=== PATIENT | female | born 1990 | race Caucasian/White ===

== ENCOUNTER 2017-01-26 12:12 | Emergency (ER) | payer MEDICAID, OTHER ==
[2017-01-26 12:24] VITALS: RESP 20
--- NOTE | 2017-01-26 13:07 | C.PDOC ---
History Of Present Illness 26 year old female presents to the ED with complaints of palpitations for two days with subjective dyspnea and mild chest pain. Patient denies fever, chills, nausea, vomiting, weakness, or numbness. Time Seen by Provider: 01/26/17 12:56 Chief Complaint (Nursing): Palpitations History Per: Patient History/Exam Limitations: no limitations Onset/Duration Of Symptoms: Days (2 days ) Current Symptoms Are (Timing): Still Present Quality: "Pain" Associated Symptoms: denies: Nausea, Dyspnea, Diaphoresis, Syncope Recent travel outside of the [place]: No Past Medical History Reviewed: Historical Data, Nursing Documentation, Vital Signs Vital Signs: Last Vital Signs Temp 98 F 01/26/17 14:15 Pulse 78 01/26/17 14:15 Resp 20 01/26/17 14:15 BP 114/73 01/26/17 14:15 Pulse Ox 97 01/26/17 14:15 - [facility] Procedures INJECT/INFUSE NEC (02/01/13) Family History: States: Unknown Family Hx - Social History Hx Alcohol Use: No Hx Substance Use: No - Immunization History Hx Tetanus Toxoid Vaccination: No Hx Influenza Vaccination: No Hx Pneumococcal Vaccination: No Review Of Systems Constitutional: Negative for: Fever, Chills Cardiovascular: Positive for: Chest Pain (mild ), Palpitations Respiratory: Positive for: Other (subjective dyspnea ). Negative for: Cough Gastrointestinal: Negative for: Nausea, Vomiting, Abdominal Pain Physical Exam - Physical Exam Appears: Non-toxic, No Acute Distress Skin: Warm, Dry Head: Atraumatic, Normacephalic Eye(s): bilateral: Normal Inspection, PERRL, EOMI Oral Mucosa: Moist Neck: Normal ROM, Supple Chest: Symmetrical, No Deformity, No Tenderness, Other (PERC negative ) Cardiovascular: Rhythm Regular, No Murmur Respiratory: Normal Breath Sounds, No Rales, No Rhonchi, No Wheezing Gastrointestinal/Abdominal: Soft, No Tenderness, No Distention, No Guarding, No Rebound Extremity: Normal ROM, No Tenderness, No Pedal Edema, No Calf Tenderness, Capillary Refill (good capillary refill, less than 2 seconds ), No Deformity, No Swelling Neurological/Psych: Oriented x3, Normal Speech, Normal Cognition, Normal Motor, Normal Sensation ED Course And Treatment - Laboratory Results Result Diagrams: 01/26/17 13:36 01/26/17 13:36 ECG: Interpreted By Me, Viewed By Me ECG Rhythm: Sinus Rhythm Interpretation Of ECG: No ST/T wave changes. Rate From EC O2 Sat by Pulse Oximetry: 98 (room air ) - Radiology CXR: Viewed By Me, Read By Radiologist CXR Interpretation: Yes: No Acute Disease Progress Note: EKG, CXR, UA, UPreg, and blood work were ordered. Medical Decision Making Medical Decision Making: palpiations/cp. r/o pneumonia, metabolic, electrotyle abnormality, anemia- labs imaging peidning perc neg. pt reasseseed speaking full sentencnes, labs cxr neg. ekg wnl. pt asking for dc as she needs to leave immediately. notified of mild luekocytosis. advise outpt fu Disposition - Disposition Referrals: [facility] [facility] [Outside] [facility] [Outside] [facility] [Outside] Moshe Cole MD [Staff Provider] - Disposition: HOME/ ROUTINE Disposition Time: 02:00 Condition: STABLE Additional Instructions: please follow up with your doctor. return to er with worsneing symptoms or concerns. Instructions: Chest Pain (ED), Palpitations (ED), Leukocytosis (ED) Forms: [facility] ([place]ic) - Clinical Impression Clinical Impression: Palpitations, Chest pain - Scribe Statement The provider has reviewed the documentation as recorded by the Scribe Carole Kinney All medical record entries made by the Scribe were at my direction and personally dictated by me. I have reviewed the chart and agree that the record accurately reflects my personal performance of the history, physical exam, medical decision making, and the department course for this patient. I have also personally directed, reviewed, and agree with the discharge instructions and disposition.
[2017-01-26 13:49] LABS: BASO % 0.3 % (0.0-2.0); EOS # 0.1 K/uL (0.0-0.7); EOS % 0.6 % (0.0-4.0); HEMATOCRIT 37.4 % (34.0-47.0); LYMPH # 1.7 K/uL (1.0-4.3); MEAN CELL VOLUME 80.9 fL (81.0-99.0); MEAN CORPUSCULAR HEMOGLOBIN 26.8 pg (27.0-31.0); MEAN CORPUSCULAR HGB CONC 33.1 g/dL (33.0-37.0); MEAN PLATELET VOLUME 10.3 fL (7.2-11.7); MONO # 0.7 K/uL (0.0-0.8); MONO % 5.3 % (0.0-10.0); RED CELL DISTRIBUTION WIDTH 13.7 % (11.5-14.5); WHITE BLOOD COUNT 12.2 K/uL (4.8-10.8)
--- NOTE | 2017-01-26 13:55 | RAD ---
HISTORY: SOB COMPARISON: No prior. TECHNIQUE: Chest PA and lateral FINDINGS: LUNGS: No active pulmonary disease. PLEURA: No significant pleural effusion identified. No pneumothorax apparent. CARDIOVASCULAR: Normal. OSSEOUS STRUCTURES: No significant abnormalities. VISUALIZED UPPER ABDOMEN: Normal. OTHER FINDINGS: None. IMPRESSION: No active disease.
[2017-01-26 13:59] LABS: RBC URINE < 1 /hpf (0-3); URINE BILIRUBIN NEGATIVE (NEGATIVE); URINE BLOOD NEGATIVE (NEGATIVE); URINE COLOR Yellow (YELLOW); URINE GLUCOSE (UA) NORMAL (Normal); URINE KETONE NEGATIVE (NEGATIVE); URINE LEUKOCYTE ESTERASE NEG Leu/uL (Negative); URINE PROTEIN NEGATIVE (NEGATIVE); URINE UROBILINOGEN NORMAL mg/dL (0.2-1.0); WBC URINE < 1 /hpf (0-5)
[2017-01-26 14:00] LABS: ALB/GLOB RATIO 1.4 (1.0-2.1); ALKALINE PHOSPHATASE 52 U/L (38-126); ALT/SGPT 26 U/L (9-52); AST/SGOT 20 U/L (14-36); BILIRUBIN,TOTAL 0.3 mg/dL (0.2-1.3); BLOOD UREA NITROGEN 14 mg/dL (7-17); CALCIUM 9.5 mg/dl (8.6-10.4); CARBON DIOXIDE 23 mmol/L (22-30); CHLORIDE 103 mmol/L (98-107); GFR AFRICAN-AMERICAN > 60; GLUCOSE,RANDOM 99 mg/dL (65-105); SODIUM 142 mmol/L (132-148); TOTAL PROTEIN 7.8 g/dL (6.3-8.3)
[2017-01-26 14:34] VITALS: BP 114/73; PULSE 78; TEMP 98
[2017-01-26 18:54] VITALS: O2SAT 98
== END 2017-01-26 14:15 | disposition home or self-care (01) ==
LOC: C.ER 12:12
DX: R00.2 Palpitations (principal); R07.9 Chest pain, unspecified